=== PATIENT | female | born 1995 | race Caucasian/White ===

== ENCOUNTER 2016-11-06 19:32 | Emergency (ER) | payer OTHER ==
[2016-11-06 20:08] VITALS: BP 125/74
--- NOTE | 2016-11-06 21:49 | UC ---
Complaint Female HPI - HPI Summary HPI Summary: dysuria, inc frequency, strong odor to urine. No vomiting. No nausea. No fever. Also has cold symptoms - History Of Current Complaint Chief Complaint: UCGeneralIllness Stated Complaint: URINARY & UPPER RESPIRATORY Time Seen by Provider: 11/06/16 21:39 Hx Obtained From: Patient Hx Last Menstrual Period: DEPO SHOT Onset/Duration: Gradual Onset, Lasting Days - 3 Timing: Constant Severity Initially: Mild Severity Currently: Mild Character: Burning Aggravating Factor(s): Urination Alleviating Factor(s): Nothing Associated Signs And Symptoms: Positive: Nausea. Negative: Fever, Back Pain, Vaginal Bleeding/Discharge, Vaginal Discharge, Vomiting(# Of Episodes =), Genital Swelling, Genital Blisters, Retained Foregin Body (Specify) - Allergies/Home Medications Allergies/Adverse Reactions: Allergies Allergy/AdvReac Type Severity Reaction Status Date / Time Amoxicillin Allergy Rash Verified 11/06/16 20:08 Erythromycin Allergy Rash Verified 11/06/16 20:08 Naproxen Allergy Rash Verified 11/06/16 20:08 PMH/Surg Hx/FS Hx/Imm Hx Previously Healthy: Yes - Surgical History Surgical History: Yes Surgery Procedure, Year, and Place: EAR TUBES - Family History Known Family History: Positive: Hypertension - Social History Occupation: Employed Full-time Alcohol Use: None Substance Use Type: None Smoking Status (MU): Never Smoked Tobacco Review of Systems Constitutional: Negative Skin: Negative Eyes: Negative ENT: Nasal Discharge Respiratory: Cough Cardiovascular: Negative Gastrointestinal: Negative Genitourinary: Dysuria, Frequency, Urgency Motor: Negative Neurovascular: Negative Musculoskeletal: Negative Neurological: Negative Psychological: Negative All Other Systems Reviewed And Are Negative: Yes Physical Exam Triage Information Reviewed: Yes Appearance: Well-Appearing, No Pain Distress, Well-Nourished Vital Signs: Initial Vital Signs Temp 98.5 F 11/06/16 20:01 Pulse 81 11/06/16 20:01 Resp 16 11/06/16 20:01 BP 125/74 11/06/16 20:01 Pulse Ox 100 11/06/16 20:01 Eye Exam: Normal ENT: Positive: Pharynx normal, Nasal congestion, TMs normal - scarring Neck exam: Normal Neck: Positive: Supple Respiratory Exam: Normal Respiratory: Positive: Lungs clear, Normal breath sounds, No respiratory distress, No accessory muscle use Cardiovascular Exam: Normal Musculoskeletal Exam: Normal Neurological Exam: Normal Psychological Exam: Normal Skin Exam: Normal Diagnostics - Laboratory Diagnostic Studies Completed/Ordered: U/A shows dip markers for infection Complaint Female Dx - Differential Dx/Diagnosis Provider Diagnoses: UTI; URI Discharge - Discharge Plan Condition: Stable Disposition: HOME Prescriptions: DOXYcycline CAP(*) [DOXYcycline 100MG CAP(*)] 100 mg PO BID #20 cap Guaifenesin-Codeine [Cheratussin AC] 1 - 2 teasp PO Q6HR #120 ml MDD 30ml Patient Education Materials: Urinary Tract Infection in Women (ED), Upper Respiratory Infection (ED) Referrals: Non Staff,Doctor [Primary Care Provider] -
[2016-11-06] MEDS ORDERED: DOXYcycline CAP(*) 100 MG PO ONE (21:51)
== END 2016-11-06 21:56 | disposition home or self-care (01) ==
LOC: UCCORT 19:32
DX: N39.0 Urinary tract infection, site not specified (principal); Z32.02 Encounter for pregnancy test, result negative; Z88.6 Allergy status to analgesic agent; Z88.1 Allergy status to other antibiotic agents; Z88.0 Allergy status to penicillin
CPT/HCPCS: 81025; 87086; 99212; A9270-GY; G0463